=== PATIENT | male | born 1970 ===

== ENCOUNTER → 2018-10-09 01:31 | Outpatient (REF) | payer OTHER, SELFPAY ==
[2018-10-09 02:48] LABS: Cholesterol 215 mg/dL (140-199); HDL Cholesterol 38 mg/dL (40-60); LDL Cholesterol Calculated 101 mg/dL (<100); Triglycerides 381 mg/dL (35-150)
[2018-10-09 02:51] LABS: Add Manual Diff / Slide Review NO; Basophils Absolute Auto 0 /uL (0-100); Basophils Percent Auto 1.1 % (0-2); Eosinophils Absolute Auto 200 /uL (0-450); Eosinophils Percent Auto 4.2 % (2-4); Hematocrit 44.3 % (41-53); Hemoglobin 15.3 g/dL (13.5-17.5); Lymphocytes Absolute Auto 1500 /uL (1100-4500); Lymphocytes Percent Auto 35.1 % (25-40); Mean Corpuscular HGB Conc 34.6 % (30-36); Mean Corpuscular Volume 92.5 fL (80-100); Monocytes Absolute Auto 300 /uL (0-900); Monocytes Percent Auto 6.8 % (3-14); Neutrophils Absolute Auto 2200 /uL (1500-7000); Neutrophils Percent Auto 52.8 % (50-75); Platelet Count 209 X10^3/uL (150-400); Red Blood Cell Count 4.79 X10^6/uL (4.5-5.9); Red Cell Distribution Width 12.9 % (11.6-14.8); White Blood Cell Count 4.2 X10^3/uL (4.5-11.0)
[2018-10-12 15:50] LABS: PSA Total 0.39 ng/mL (< 4.01)
[2018-10-12 16:48] LABS: Estradiol < 15 pg/mL (< 40)
== END ==
LOC: LAB 01:31
PROVIDERS: Visit Provider Naturopath
DX: E78.5 Hyperlipidemia, unspecified (principal)
CPT/HCPCS: 36415; 80061; 82670; 84153; 84154; 84270; 84402; 84403; 85025